=== PATIENT | female | born 1975 | race Caucasian/White ===

== ENCOUNTER 2017-01-16 12:21 | Emergency (ER) | payer OTHER, MEDICAID ==
[~2017-01-16] VITALS: Ht 167.6 cm; Wt 104.3 kg
[2017-01-16 12:44] VITALS: BP 130/77
[2017-01-16 13:49] LABS: Basophils # (auto) 0 uL; Basophils % (auto) 0.3 % (0.0-2.0); DEFINITIVE VIEW TRANSMISSION; Eosinophils # (auto) 0 uL; Eosinophils % (auto) 0.4 % (0.0-7.0); Hematocrit 30.9 % (36.0-46.0); Hemoglobin 9.9 g/dL (12.2-16.2); Lymphocytes # (auto) 1.9 uL; Lymphocytes % (auto) 23.8 % (10.0-50.0); Mean Corpuscular Hemoglobin 22.9 pg (28.0-32.0); Mean Corpuscular Hgb Conc. 31.8 g/dL (32.0-36.0); Mean Corpuscular Volume 71.9 fL (80.0-100.0); Mean Platelet Volume 7.5 fL (7.4-10.4); Monocytes # (auto) 0.4 uL; Monocytes % (auto) 5.2 % (0.0-12.0); Neutrophils # (auto) 5.6 uL; Neutrophils % (auto) 70.3 % (37.0-80.0); Platelet Count (auto) 498 10^3/uL (140-450); Red Cell Distribution Width 18.9 % (11.6-16.0); White Blood Cell 7.9 10^3/uL (4.4-10.8)
[2017-01-16 14:02] LABS: Albumin 3.4 g/dL (3.4-5.0); Anion Gap 12 (5-15); Blood Urea Nitrogen 9 mg/dL (7-18); Calcium 8.7 mg/dL (8.5-10.1); Carbon Dioxide 25 mmol/L (21-32); Chloride 106 mmol/L (98-107); Glucose 85 mg/dL (74-106); Potassium 3.9 mmol/L (3.5-5.1); Sodium 143 mmol/L (136-145)
[2017-01-16 14:04] LABS: Aspartate Aminotransferase 22 U/L (15-37); BUN/Creatinine Ratio 11.5; GFR African American 105 mL/min; GFR Non-African American 87 mL/min
[2017-01-16 14:09] LABS: Alkaline Phosphatase 81 U/L (45-117); Bilirubin, Total 0.5 mg/dL (0.2-1.0); Total Protein 7.8 g/dL (6.4-8.2)
[2017-01-16 14:24] LABS: Microcytosis Moderate; Platelet Estimate Increased
[2017-01-16 14:25] LABS: Anisocytosis Slight; Hypochromia Moderate
[2017-01-16 14:26] LABS: Ovalocytes FEW
== END 2017-01-16 16:48 | disposition left against medical advice (07) ==
LOC: ER 12:21
DX: R06.02 Shortness of breath (principal); Z53.21 Procedure and treatment not carried out due to patient leaving prior to being seen by health care provider
CPT/HCPCS: 36415; 71020; 80053; 84484; 85025